=== PATIENT | female | born 1995 | race Caucasian/White ===

== ENCOUNTER 2017-03-12 15:45 | Emergency (ER) | payer MEDICAID ==
[2017-03-12 16:30] VITALS: BP 124/75
[2017-03-12 17:20] LABS: Bilirubin,Urine NEG (Negative); Blood,Urine SM (Negative); Ketones,Urine TR mg/dL (Negative); Leukocyte Esterase,Urine LG (Negative); Mucus,Urine 3+ /HPF; Nitrite,Urine NEG (Negative); Urobilinogen,Urine < 2.0 mg/dL (<2.0)
[2017-03-12] MEDS ORDERED: ROCEPHIN IM ONE (19:41)
[2017-03-12] MEDS ORDERED: XYLOCAINE 1% MPF 5 mL INFILTRATI ONE (19:41)
[2017-03-12] MEDS ORDERED: ZITHROMAX PO ONE (19:41)
--- NOTE | 2017-03-12 20:23 | Emergency Department Report ---
ED Female HPI - General Chief complaint: Urogenital-Female Stated complaint: VAGINAL IRRITATION Time Seen by Provider: 03/12/17 19:34 Source: patient Mode of arrival: Ambulatory Limitations: No Limitations - History of Present Illness Initial comments: Patient comes into the ER today with complaints of vaginal irritation and vaginal discharge that started yesterday. Patient does state that she is sexually active and has recently been told that the individual that she has been with has been with somebody else. MD Complaint: vaginal discharge - Related Data Previous Rx's Medication Instructions Recorded Last Taken Type traMADol [Ultram 50 MG tab] 50 mg PO Q4HR PRN #12 tablet 03/12/17 Unknown Rx Allergies Allergy/AdvReac Type Severity Reaction Status Date / Time No Known Allergies Allergy Unverified 03/12/17 16:27 ED Review of Systems ROS: Stated complaint: VAGINAL IRRITATION Other details as noted in HPI Constitutional: denies: chills, fever Eyes: denies: eye pain, eye discharge, vision change ENT: denies: ear pain, throat pain Respiratory: denies: cough, shortness of breath, wheezing Cardiovascular: denies: chest pain, palpitations Endocrine: no symptoms reported Gastrointestinal: denies: abdominal pain, nausea, diarrhea Genitourinary: discharge. denies: urgency, dysuria Musculoskeletal: denies: back pain, joint swelling, arthralgia Skin: denies: rash, lesions Neurological: denies: headache, weakness, paresthesias Psychiatric: denies: anxiety, depression Hematological/Lymphatic: denies: easy bleeding, easy bruising ED Past Medical Hx - Past Medical History Previous Medical History?: Yes Additional medical history: STD exposure - Surgical History Past Surgical History?: No - Social History Smoking Status: Never Smoker Substance Use Type: Non Opiate Pain - Medications Home Medications: Home Medications Medication Instructions Recorded Confirmed Last Taken Type traMADol [Ultram 50 MG tab] 50 mg PO Q4HR PRN #12 tablet 03/12/17 Unknown Rx ED Physical Exam - General Limitations: No Limitations General appearance: alert, in no apparent distress - Head Head exam: Present: atraumatic, normocephalic - Eye Eye exam: Present: normal appearance - ENT ENT exam: Present: mucous membranes moist - Neck Neck exam: Present: normal inspection - Respiratory Respiratory exam: Present: normal lung sounds bilaterally. Absent: respiratory distress - Cardiovascular Cardiovascular Exam: Present: regular rate, normal rhythm. Absent: systolic murmur, diastolic murmur, rubs, gallop - GI/Abdominal GI/Abdominal exam: Present: soft, normal bowel sounds. Absent: distended, tenderness, guarding, rebound, rigid - External exam: Present: erythema, swelling. Absent: lesions, lacerations, ecchymosis, bleeding Speculum exam: Present: erythema, vaginal discharge (yellowish greenish discharge noted on examination), cervical discharge. Absent: vaginal bleeding, foreign body - Extremities Exam Extremities exam: Present: normal inspection - Back Exam Back exam: Present: normal inspection - Neurological Exam Neurological exam: Present: alert, oriented X3 - Psychiatric Psychiatric exam: Present: normal affect, normal mood - Skin Skin exam: Present: warm, dry, intact, normal color. Absent: rash ED Course Vital Signs 03/12/17 16:27 Temperature 98.4 F Pulse Rate 64 Respiratory 18 Rate Blood Pressure 124/75 O2 Sat by Pulse 100 Oximetry ED Medical Decision Making - Lab Data Lab Results 03/12/17 03/12/17 Range/Units 15:45 15:45 Urine Color Yellow (Yellow) Urine Turbidity Slightly-cloudy (Clear) Urine pH 5.0 (5.0-7.0) Ur Specific [place] 1.026 (1.003-1.030) Urine Protein 30 mg/dl (Negative) mg/dL Urine Glucose (UA) Neg (Negative) mg/dL Urine Ketones Tr (Negative) mg/dL Urine Blood Sm (Negative) Urine Nitrite Neg (Negative) Urine Bilirubin Neg (Negative) Urine Urobilinogen < 2.0 (<2.0) mg/dL Ur Leukocyte Esterase Lg (Negative) Urine WBC (Auto) 11.0 H (0.0-6.0) /HPF Urine RBC (Auto) 13.0 (0.0-6.0) /HPF U Epithel Cells (Auto) 9.0 (0-13.0) /HPF Urine Mucus 3+ /HPF Urine HCG, Qual Negative (Negative) Microbiology 03/12/17 19:53 Cervix Wet Prep - Final Microbiology 03/12/17 19:53 Wet Prep - Final Cervix Microbiology 03/12/17 19:53 Cervix Wet Prep - Final - Medical Decision Making Patient is nontoxic and hemodynamically stable. Patient does have examination consistent with vaginitis. Wet prep results reviewed and discussed with patient. Wet prep does not reveal any yeast, Trichomonas or bacterial vaginosis. Patient was given intramuscular Rocephin 250 mg as well as 1 g of Zithromax orally here in the ER for suspected potential gonorrhea and/or Chlamydia. Patient informed that GC and chlamydia results do not come back for the next 2 days. Patient to return to the ER or follow up with her doctor for results. Patient is in agreement with treatment plan the patient is stable for discharge. Critical care attestation.: If time is entered above; I have spent that time in minutes in the direct care of this critically ill patient, excluding procedure time. ED Disposition Clinical Impression: Vaginitis and vulvovaginitis Disposition: - TO HOME OR SELFCARE Is pt being admited?: No Does the pt Need Aspirin: No Condition: Good Instructions: Vaginitis (ED) Prescriptions: traMADol [Ultram 50 MG tab] 50 mg PO Q4HR PRN #12 tablet PRN Reason: Pain Referrals: PRIMARY CARE, [Primary Care Provider] - 3-5 Days Time of Disposition: 20:23
== END 2017-03-12 20:30 | disposition home or self-care (01) ==
LOC: ED 15:45
DX: N76.0 Acute vaginitis (principal)
CPT/HCPCS: 81001; 81025; 87210; 87591; 96372; 99284; J0696

== ENCOUNTER 2017-04-17 10:52 | Emergency (ER) | payer MEDICAID | END 2017-04-17 10:53 | disposition left against medical advice (07) | LOC: ED 10:52 | DX: Z00.8 Encounter for other general examination (principal); Z53.21 Procedure and treatment not carried out due to patient leaving prior to being seen by health care provider ==